=== PATIENT | male | born 1960 | race Caucasian/White ===

== ENCOUNTER 2016-07-12 08:40 | Inpatient (IN) | payer OTHER ==
[2016-07-12 10:24] LABS: BASOPHIL 0 % (0-2); EOSINOPHIL 0 % (0-5); HCT 32.4 % (42.0-52.0); HGB 10.8 g/dl (13.2-18.0); LYMPHOCYTE 2.7 % (15-48); MCH 31.9 pg (25.0-31.0); MCHC 33.3 g/dL (32.0-36.0); MCV 95.6 fL (78.0-100.0); MPV 9.1 fL (6.0-9.5); NEUTROPHIL 94.3 % (41-80); PLT 640 K/uL (150-400); RBC 3.39 M/uL (4.70-6.00); RDW 21.2 % (11.5-14.0)
[2016-07-12 10:36] LABS: WBC 31.3 K/uL (4.0-10.5)
[2016-07-12 10:42] LABS: ALBUMIN 3.1 g/dL (3.5-5.0); GLOBULIN (CALCULATION) 3.6 g/dL (2.2-4.2); LACTIC ACID 1.5 mmol/L (0.5-2.2); POTASSIUM 4.6 mmol/L (3.5-5.1); TOTAL PROTEIN 6.7 g/dL (6.4-8.3)
[2016-07-12 13:00] LABS: BILIRUBIN NEGATIVE (NEGATIVE); BLOOD NEGATIVE Ery/uL (NEGATIVE); CLARITY CLEAR (CLEAR); COLOR YELLOW (YELLOW); GLUCOSE (U) NORMAL (NORMAL); KETONE (U) NEGATIVE (NEGATIVE); LEUKOCYTES NEGATIVE Leu/uL (NEGATIVE); NITRITE NEGATIVE (NEGATIVE); PROTEIN NEGATIVE (NEGATIVE); SPECIFIC GRAVITY 1.025 (1.001-1.030); UROBILINOGEN 0.2 mg/dL (0.2-1.0); pH 5.5 (5.0-9.0)
[2016-07-13 05:21] LABS: BASOPHIL 0.1 % (0-2); EOSINOPHIL 0.1 % (0-5); HCT 29.2 % (42.0-52.0); HGB 9.5 g/dl (13.2-18.0); LYMPHOCYTE 4.7 % (15-48); MCH 31.9 pg (25.0-31.0); MCHC 32.5 g/dL (32.0-36.0); MONOCYTE 3.2 % (0-12); MPV 9.5 fL (6.0-9.5); NEUTROPHIL 91.9 % (41-80); PLT 509 K/uL (150-400); RBC 2.98 M/uL (4.70-6.00); RDW 21.9 % (11.5-14.0)
[2016-07-13 05:25] LABS: WBC 32.3 K/uL (4.0-10.5)
[2016-07-13 05:41] LABS: ALBUMIN 2.8 g/dL (3.5-5.0); BILIRUBIN - TOTAL 1.2 mg/dL (0.1-1.0); CREATININE 1.1 mg/dL (0.7-1.2); GLOBULIN (CALCULATION) 2.6 g/dL (2.2-4.2); MAGNESIUM 1.8 mg/dL (1.40-2.10); POTASSIUM 4.8 mmol/L (3.5-5.1); TOTAL PROTEIN 5.4 g/dL (6.4-8.3)
[2016-07-14 04:02] LABS: HCT 29.1 % (42.0-52.0); HGB 9.3 g/dl (13.2-18.0); MCH 31.5 pg (25.0-31.0); MCV 98.6 fL (78.0-100.0); MPV 9.6 fL (6.0-9.5); RBC 2.95 M/uL (4.70-6.00); RDW 22.3 % (11.5-14.0)
[2016-07-14 04:05] LABS: WBC 25.8 K/uL (4.0-10.5)
[2016-07-14 04:17] LABS: ALBUMIN 2.7 g/dL (3.5-5.0); BILIRUBIN - TOTAL 1.3 mg/dL (0.1-1.0); CREATININE 0.9 mg/dL (0.7-1.2); GLOBULIN (CALCULATION) 2.7 g/dL (2.2-4.2); MAGNESIUM 1.68 mg/dL (1.40-2.10); PHOSPHORUS 2.5 mg/dL (2.7-4.5); POTASSIUM 4.8 mmol/L (3.5-5.1); TOTAL PROTEIN 5.4 g/dL (6.4-8.3)
[2016-08-13] MEDS ORDERED: NORCO 5-325 TA1 EACH PO (15:12)
[2016-08-13] MEDS ORDERED: ASPIRIN CHEWABL81 MG PO (15:12)
[2016-08-13] MEDS ORDERED: AUGMENTIN250 MG PO (15:12)
[2016-08-13] MEDS ORDERED: PRINIVIL20 MG PO (15:13)
[2016-08-13] MEDS ORDERED: LASIX20 MG PO (15:13)
[2016-08-13] MEDS ORDERED: PRADAXA150 MG PO (15:13)
[2016-08-13] MEDS ORDERED: PROTONIX 40MG T40 MG PO (15:13)
[2016-08-13] MEDS ORDERED: HYDREA500 MG PO (15:14)
[2016-08-13] MEDS ORDERED: ALLOPURINOL100 MG PO (15:14)
[2016-08-13] MEDS ORDERED: CERTAGEN1 EACH PO (15:14)
== END 2016-07-14 11:49 | disposition other institution (70) | DRG 871 ==
LOC: FER 08:40 → FTCU 13:00
PROVIDERS: Internal Medicine; Internal Medicine Nephrology; ADMIT Internal Medicine
DX: A41.9 Sepsis, unspecified organism (principal); K85.20 Alcohol induced acute pancreatitis without necrosis or infection; N17.9 Acute kidney failure, unspecified; I72.8 Aneurysm of other specified arteries; E87.1 Hypo-osmolality and hyponatremia; R65.20 Severe sepsis without septic shock; I10 Essential (primary) hypertension; J44.9 Chronic obstructive pulmonary disease, unspecified; I25.10 Atherosclerotic heart disease of native coronary artery without angina pectoris; K52.89 Other specified noninfective gastroenteritis and colitis; F10.20 Alcohol dependence, uncomplicated; G47.33 Obstructive sleep apnea (adult) (pediatric); K27.9 Peptic ulcer, site unspecified, unspecified as acute or chronic, without hemorrhage or perforation; D64.9 Anemia, unspecified; D47.3 Essential (hemorrhagic) thrombocythemia; K74.60 Unspecified cirrhosis of liver; F17.290 Nicotine dependence, other tobacco product, uncomplicated; Z79.899 Other long term (current) drug therapy; Z95.1 Presence of aortocoronary bypass graft; Z86.711 Personal history of pulmonary embolism; Z83.3 Family history of diabetes mellitus; Z82.49 Family history of ischemic heart disease and other diseases of the circulatory system; Z83.6 Family history of other diseases of the respiratory system
CPT/HCPCS: 36415; 71010; 76705; 80053; 81003; 82150; 83605; 83690; 83735; 84100; 84145; 84484; 85025; 87040; 90686; 90732; 93005; 94010; J1170; J1956; J2020; J2405; J2543